=== PATIENT | male | born 2000 | race Two or more races ===

== ENCOUNTER 2018-04-15 10:57 | Inpatient (IN) | payer OTHER ==
[~2018-04-15] VITALS: Ht 188 cm; Wt 125.6 kg
[2018-04-15] MEDS ORDERED: LORazepam 2 MG/ML VIAL ONE (11:00)
[2018-04-15] MEDS ORDERED: IV NORMAL SALINE 1,000ML 1,000 ML IV ONE (11:15)
[2018-04-15] MEDS ORDERED: ONDANSETRON PF 4 MG/2 ML VIAL. IV ONE (11:15)
[2018-04-15] MEDS ORDERED: LORazepam 2 MG/ML VIAL IV ONE (11:15)
[2018-04-15 11:20] LABS: BASO # 0.1 x10^3/uL (0.0-0.2); BASO % 1 % (0-3); EOS # 0.5 x10^3/uL (0.0-0.7); EOS % 6 % (0-3); HEMOGLOBIN 17.4 g/dL (13.0-17.5); LYMPH # 2.8 x10^3/uL (1.0-4.8); LYMPH % 32 % (24-48); MEAN CORPUSCULAR HEMOGLOBIN 32 pg (25-35); MEAN CORPUSCULAR HGB CONC 36 g/dL (31-37); MEAN CORPUSCULAR VOLUME 90 fL (79-100); MONO # 0.8 x10^3/uL (0.0-1.1); MONO % 9 % (0-9); NEUT # 4.6 x10^3uL (1.8-7.7); NEUT % 52 % (31-73); PLATELET COUNT 282 x10^3/uL (140-400); RED BLOOD COUNT 5.47 x10^6/uL (4.30-5.70); RED CELL DISTRIBUTION WIDTH 12.9 % (11.5-14.5); WHITE BLOOD COUNT 8.8 x10^3/uL (4.0-11.0)
[2018-04-15 11:35] LABS: ALBUMIN 4.1 g/dL (3.4-5.0); CALCIUM 9.8 mg/dL (8.5-10.1); CREATININE 1.1 mg/dL (0.7-1.3); GFR 85.3; POTASSIUM 3.7 mmol/L (3.5-5.1); TOTAL BILIRUBIN 1.1 mg/dL (0.2-1.0); TOTAL PROTEIN 8.3 g/dL (6.4-8.2)
--- NOTE | 2018-04-15 11:40 | PHYS DOC ---
Adult General Chief Complaint Chief Complaint: SEIZURE HPI HPI 18-year-old male presents via EMS for possible seizure. 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 He remembers waking up to several people standing around him. After that, he does not remember the ambulance ride over here. EMS reports they witnessed movements of the neck, head , and bilateral upper extremities. They state there was also some gross motor flailing of the upper extremities. It did not appear to be consistent with traditional seizure, but they gave 5 of Versed. This did improve the patients symptoms. The patient denies recent illness. He denies fever or chills. He denies drug or alcohol use. He has no seizure history. He has no major medical problems. He is not taking any medications, but does take workout supplements. Review of Systems Review of Systems Constitutional: Denies fever or chills [] Eyes: Denies change in visual acuity, redness, or eye pain [] HENT: Denies nasal congestion or sore throat [] Respiratory: Denies cough or shortness of breath [] Cardiovascular: No additional information not addressed in HPI [] GI: Denies abdominal pain, nausea, vomiting, bloody stools or diarrhea [] : Denies dysuria or hematuria [] Musculoskeletal: Denies back pain or joint pain [] Integument: Denies rash or skin lesions [] Neurologic: Denies headache, focal weakness or sensory changes. Seizure [] Endocrine: Denies polyuria or polydipsia [] All other systems were reviewed and found to be within normal limits, except as documented in this note. Current Medications Current Medications Current Medications Medications (Trade) Dose Ordered Sig/Dhruv Start Time Stop Time Status Last Admin Dose Admin Lorazepam (Ativan) 2 mg 1X ONCE 04/15/18 11:15 04/15/18 11:16 DC 04/15/18 11:14 2 MG Ondansetron HCl (Zofran) 4 mg 1X ONCE 04/15/18 11:15 04/15/18 11:16 DC 04/15/18 11:15 4 MG Sodium Chloride 1,000 ml @ 1,000 mls/hr 1X ONCE 04/15/18 11:15 04/15/18 12:14 04/15/18 11:15 1,000 MLS/HR Allergies Allergies Allergies Coded Allergies Type Severity Reaction Last Updated Verified No Known Drug Allergies 04/15/18 No Physical Exam Physical Exam Constitutional: Well developed, well nourished, no acute distress, non-toxic appearance. [] HENT: Normocephalic, atraumatic, bilateral external ears normal, oropharynx moist, no oral exudates, nose normal. [] Eyes: PERRLA, EOMI, conjunctiva normal, no discharge. [] Neck: Normal range of motion, no tenderness, supple, no stridor. [] Cardiovascular:Heart rate regular rhythm, no murmur [] Lungs & Thorax: Bilateral breath sounds clear to auscultation [] Abdomen: Bowel sounds normal, soft, no tenderness, no masses, no pulsatile masses. [] Skin: Warm, dry, no erythema, no rash. [] Back: No tenderness, no CVA tenderness. [] Extremities: No tenderness, no cyanosis, no clubbing, ROM intact, no edema. [] Neurologic: Alert and oriented X 3, normal motor function, normal sensory function, no focal deficits noted. [] Psychologic: Affect normal, judgement normal, mood normal. [] Current Patient Data Lab Results Laboratory Tests Test 04/15/18 11:04 White Blood Count 8.8 x10^3/uL (4.0-11.0) Red Blood Count 5.47 x10^6/uL (4.30-5.70) Hemoglobin 17.4 g/dL (13.0-17.5) Hematocrit 49.0 % (39.0-53.0) Mean Corpuscular Volume 90 fL (79-100) Mean Corpuscular Hemoglobin 32 pg (25-35) Mean Corpuscular Hemoglobin Concent 36 g/dL (31-37) Red Cell Distribution Width 12.9 % (11.5-14.5) Platelet Count 282 x10^3/uL (140-400) Neutrophils (%) (Auto) 52 % (31-73) Lymphocytes (%) (Auto) 32 % (24-48) Monocytes (%) (Auto) 9 % (0-9) Eosinophils (%) (Auto) 6 % (0-3) H Basophils (%) (Auto) 1 % (0-3) Neutrophils # (Auto) 4.6 x10^3uL (1.8-7.7) Lymphocytes # (Auto) 2.8 x10^3/uL (1.0-4.8) Monocytes # (Auto) 0.8 x10^3/uL (0.0-1.1) Eosinophils # (Auto) 0.5 x10^3/uL (0.0-0.7) Basophils # (Auto) 0.1 x10^3/uL (0.0-0.2) EKG EKG [] Radiology/Procedures Radiology/Procedures [] Impressions: CT scan of the head without contrast 04/15/2018 Clinical History: Atypical seizure responses. Technique: Unenhanced, contiguous, 5 mm axial sections were obtained through the head. One or more of the following individualized dose reduction techniques were utilized for this study: 1. Automated exposure control. 2. Adjustment of the mA and/or kV according to patient size. 3. Use of iterative reconstruction technique. Findings: The ventricles and sulci are within normal limits in size and configuration. No focal area of abnormal attenuation is seen involving the brain parenchyma. No extra-axial fluid collection is seen. No skull fracture is seen. Impression: Negative study. Electronically signed by: Ishaan Muller MD (04/15/2018 12:08 PM) [id number] DICTATED AND SIGNED BY: ISHAAN MULLER MD DATE: 04/15/18 [id number] CC: ANTHONY BARNES DO ~ Course & Med Decision Making Course & Med Decision Making Pertinent Labs and Imaging studies reviewed. (See chart for details) In the ED, the patient had some jerking motions of his bilateral lower extremities as well as his eyes rolling back in his head. The patient was not responsive. As we prepared to give the patient Ativan, he seemed to come out of the episode. We still gave the Ativan. The patient then became more alert and was able to answer my questions. Workup is pending. The patient's labs are significant for some slightly elevated liver enzymes but are otherwise unremarkable. His urine drug screen is negative. His head CT is unremarkable. The patient had an additional episode of blank staring without muscle twitching prior to receiving his Keppra IV dose. I have given him 1 g IV. The patient had no further seizure-like episodes. I discussed the patient with Dr. Mendez, the hospitalist and Dr. Corey, the neurologist and they recommended admission to the hospital for further observation and neurology consult tomorrow. The patient is in agreement with this plan. Greater than 35 minutes of critical care time was spent on this patient exclusive of other billable procedures. [] Dragon Disclaimer Dragon Disclaimer This electronic medical record was generated, in whole or in part, using a voice recognition dictation system. Departure Departure: Impression: Primary Impression: Status epilepticus Disposition: ADMITTED INPATIENT Condition: STABLE ANTHONY BARNES DO Apr 15, 2018 11:40
[2018-04-15 11:42] LABS: BARBITURATES NEG (NEG); BENZODIAZEPINES NEG (NEG); CANNABINOIDS NEG (NEG); COCAINE NEG (NEG); METHADONE NEG (NEG); OPIATES NEG (NEG); PHENCYCLIDINE NEG (NEG)
[2018-04-15 11:47] LABS: AMPHETAMINE/METHAMPHETAMINE NEG (NEG)
[2018-04-15] MEDS ORDERED: IV NORMAL SALINE 100ML 100 ML ONE (12:08)
[2018-04-15] MEDS ORDERED: levETIRAcetam 500 MG/5 ML VIAL IV ONE (12:08)
--- NOTE | 2018-04-15 12:12 | RAD ---
CT scan of the head without contrast 04/15/2018 Clinical History: Atypical seizure responses. Technique: Unenhanced, contiguous, 5 mm axial sections were obtained through the head. One or more of the following individualized dose reduction techniques were utilized for this study: 1. Automated exposure control. 2. Adjustment of the mA and/or kV according to patient size. 3. Use of iterative reconstruction technique. Findings: The ventricles and sulci are within normal limits in size and configuration. No focal area of abnormal attenuation is seen involving the brain parenchyma. No extra-axial fluid collection is seen. No skull fracture is seen. Impression: Negative study. Electronically signed by: Ishaan Muller MD (04/15/2018 12:08 PM) [id number]
[2018-04-15 12:31] LABS: BILIRUBIN,URINE NEG (NEG); CLARITY,URINE CLEAR; COLOR,URINE AMBER; GLUCOSE,URINE NEG (NEG); NITRITE,URINE NEG (NEG); UROBILINOGEN,URINE 0.2 mg/dL (0.2 mg/dL)
[2018-04-15 12:32] LABS: BACTERIA,URINE 0 /HPF (0-FEW); RBC,URINE 0 /HPF (0-2); SQUAMOUS EPITHELIAL CELL,UR OCC /LPF; WBC,URINE 0 /HPF (0-4)
[2018-04-15] MEDS ORDERED: ONDANSETRON PF 4 MG/2 ML VIAL. IV PRN (14:15)
[2018-04-15 15:00] VITALS: BP 130/87
--- NOTE | 2018-04-15 18:02 | HP ---
ADMIT DATE: 04/15/2018 HISTORY OF PRESENT ILLNESS: The patient is a 18-year-old male patient, a student at [employer], was brought to the Emergency Room via emergency medical service personnel for possible seizures. 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 After that, he does not remember the ambulance ride over here. EMS reports that they witnessed movements of the neck, head, and bilateral upper extremities. They stated there was also some gross motor flailing the upper extremities. He did not appear to be consistent with the additional seizures. They gave him 5 mg of Versed, this did improve the patient's symptoms. The patient denied recent illness. Denied any fever or chills. Denied any drug or alcohol. He has never had any seizure before and no major medical problem. He is not taking any medication, but does take some workout supplement. The patient was extensively evaluated in the Emergency Room, has received 2 mg of lorazepam, Zofran as well as IV fluid and eventually a gram of Keppra. He has had a CT scan of the head without contrast, which showed that the ventricles and sulci are within normal limits in size and configuration. No focal area of abnormal attenuation is seen involving the brain parenchyma. No extraaxial fluid collection is seen. No skull fracture is seen. Apparently while the patient was in the Emergency Room, he has jerking motion of his bilateral lower extremities as well as his eyes rolling back in his head. He was not responsive and apparently during the preparation to give him the Ativan. He seemed to come out of the episode. He has also another episode when he has a blank staring without muscle twitching prior to receiving his Keppra. We did consult Dr. Corey, who kindly will come and see him for further evaluation and treatment. PAST MEDICAL HISTORY: Unremarkable. PAST SURGICAL HISTORY: Unremarkable. ALLERGIES: He has known drug allergies. MEDICATIONS: He is currently on no medication. FAMILY HISTORY: He has 3 brothers, all younger and healthy. Both parents are alive and healthy. SOCIAL HISTORY: He is a student at [employer]. He does not smoke, drink alcohol or use any recreational drugs. REVIEW OF SYSTEMS: Essentially unremarkable. PHYSICAL EXAMINATION GENERAL: When I saw him, he was resting slightly propped up in bed, in no apparent respiratory distress. No pallor, jaundice, cyanosis, or thyromegaly. No jugular venous distension. No limb edema. VITAL SIGNS: His heart rate was 98, blood pressure 130/87, temperature was 97.4, respiratory rate was 18 and oxygen saturation was 96%. HEAD, EYES, EARS, NOSE AND THROAT: Showed normocephalic, atraumatic. NECK: Supple. HEART: Showed normal first and second sounds. No gallop, rub or murmur. CHEST: Clear to auscultation. No crepitation or rhonchi. ABDOMEN: Distended, soft, nontender. No guarding or rigidity. No organomegaly. All hernial orifice intact. Bowel sounds normal. NEUROLOGIC: He was awake, alert, oriented to time and place and person. All cranial nerves are intact. EXTREMITIES: He moves extremities without difficulty. LABORATORY DATA: In the Emergency Room showed a white cell count of 8800, hemoglobin 17.4, hematocrit 49, MCV 90 and platelet count 202,000 with normal manual differential. Serum sodium was 140, potassium 3.7, chloride 104, bicarbonate 24, anion gap of 12, BUN 14, creatinine 1.1, estimated GFR was 85 mL per minute. His glucose was 100, calcium was 9.8. Total bilirubin is 1.1. AST is normal. ALT and alkaline phosphatase slightly elevated. Total protein was 8.3, albumin was 4.1. Urinalysis was essentially unremarkable. Toxic screen was negative. His CT scan of the head showed the ventricles and sulci are within normal limits in size and configuration. No focal area of abnormal continuation is seen involving the brain parenchyma. No extraaxial fluid collection is seen. No skull fracture is seen. ASSESSMENT AND PLAN: The patient was admitted with what seems to be atypical seizures. He did not bite his tongue. He was not incontinent of bowel or bladder. Given by description, it does not seem to have the typical tonic-clonic seizures. In any case, he has received 1000 mg of Keppra. We will continue with Keppra. We have consulted Dr. Corey and we will decide on further management and implement his recommendation. ACE MEREDITH MD DR: MELANIA/steve JOB#: [id number] / [id number]
[2018-04-15] MEDS ORDERED: ACETAMINOPHEN 325 MG TABLET PO PRN (18:15)
[2018-04-15 19:15] VITALS: BP 135/86
[2018-04-15 23:04] VITALS: BP 116/68
--- NOTE | 2018-04-16 00:49 | CONS ---
DATE OF CONSULTATION: 04/15/2018 NEUROLOGICAL CONSULTATION REFERRING PHYSICIAN: Sada Mendez MD REASON FOR CONSULTATION: Rule out seizure. 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 According to his coaches, the patient was lying in the room after training, but he became unresponsive for a few minutes, several trials to wake him up, he could not respond, then EMS was activated. On the scene, the patient was all of a sudden very violent and required 4 to 5 people to calm him down. Then, he was given Versed. On arrival to the Emergency Room, the patient was awake and he denies any history of seizure or any recent illnesses. According to his coaches, the patient demonstrated 3-4 episodes lasted a few minutes, described as a sudden onset of behavior changes. The eyes were rolling up in the head and had mental status changes. They also mentioned recent episodes of severe anger at his coaches, which he has never done this before. Currently, the patient is very tired and slowly responsive after giving him Ativan in the Emergency Room and loaded him with 1 g of Keppra intravenously. He has not had any recurrent episode since he has been on the floor. However, the patient did not recall the first episode, which described as violent movements of all his entire body, but not necessarily the tonic-clonic rhythmic seizure activities. The patient denies tongue biting, urinary or bladder incontinence. He denies any recent head injuries or fall. He denies taking any illegal drugs or any other medications. PAST MEDICAL HISTORY: As described above, otherwise, unremarkable. SOCIAL HISTORY: The patient is single. He is a resident at [employer]. He denies smoking, alcohol drinking, or illicit drug use. CURRENT HOME MEDICATIONS: None. ALLERGIES: No known drug allergies. REVIEW OF SYSTEMS: A 10-point review of system was performed as mentioned above in history of present illness. PHYSICAL EXAMINATION: GENERAL: Obese male, not in acute distress. He weighs 277 pounds. VITAL SIGNS: Blood pressure 130/87, respiratory rate 18, pulse is 98 regular, temperature 97.4, oxygen saturation is 96% on room air. HEENT: Normocephalic, atraumatic, otherwise, unremarkable. NECK: Supple. Negative for carotid bruit, lymphadenopathy or thyromegaly. LUNGS: Clear to A and P. CARDIOVASCULAR: Regular rate and rhythm. Normal S1, S2. There is no S3, S4, or murmur. ABDOMEN: Soft. Bowel sounds positive. EXTREMITIES: Negative for cyanosis, clubbing or pitting edema. NEUROLOGIC: Mental status: The patient is alert and oriented x 3. The speech is slow. There is no language dysfunction. Memory, judgment, and abstract thinking are fair. The patient denies hallucination or delusion. CRANIAL NERVES: Visual posada are full. The pupils are reactive to light and accommodation. The extraocular movements are intact. There is no nystagmus. There is no facial motor or sensory deficit. Hearing is intact bilaterally. The palate is elevated symmetrically. Sternocleidomastoid muscles are powerful bilaterally. The patient shrugs his shoulders symmetrically, protrudes his tongue in the midline without fasciculation or atrophy. MOTOR: No focal muscle bulk was seen. The tone is normal. The strength is 5/5 throughout. Sensory examination revealed normal pinprick, light touch, vibratory and position senses. Deep tendon reflexes were symmetric and hypoactive without pathologic responses. Gait not tested as the patient is very tired. LABORATORY DATA: CBC revealed white blood cells of 8800, hemoglobin 17.4, hematocrit 49, platelet count of 282,000. Chemistry revealed sodium 140, potassium 3.7, chloride 104, CO2 of 24, BUN 14, creatinine 1.1, glucose 100, calcium 9.8. Total bilirubin 1.1. AST is normal, ALT is high at 70, alkaline phosphatase is high at 125 and protein is high at 8.3. Urinalysis is negative and urine drug screen is negative as well. IMPRESSION: Seizure-like activities, etiology uncertain, rule out epileptic versus non-epileptic seizure. RECOMMENDATION: 1. The patient has been loaded with Keppra in the Emergency Room and he will be on maintenance dose 500 mg twice a day. 2. The patient needs EEG as soon as possible. M Lawrence KINCAID MD DR: MISSAEL/steve JOB#: [id number] / [id number]
[2018-04-16 06:09] VITALS: BP 121/79
[2018-04-16 06:28] LABS: HEMATOCRIT 47.2 % (39.0-53.0); HEMOGLOBIN 16.5 g/dL (13.0-17.5); RED BLOOD COUNT 5.18 x10^6/uL (4.30-5.70); RED CELL DISTRIBUTION WIDTH 12.6 % (11.5-14.5); WHITE BLOOD COUNT 8.2 x10^3/uL (4.0-11.0)
[2018-04-16 06:37] LABS: ALBUMIN 3.6 g/dL (3.4-5.0); CALCIUM 8.8 mg/dL (8.5-10.1); CREATININE 0.9 mg/dL (0.7-1.3); GFR 107.6; POTASSIUM 3.5 mmol/L (3.5-5.1); TOTAL BILIRUBIN 1.1 mg/dL (0.2-1.0); TOTAL PROTEIN 7.3 g/dL (6.4-8.2)
[2018-04-16 10:26] VITALS: BP 152/85
--- NOTE | 2018-04-16 11:49 | DS ---
DATE OF DISCHARGE: HISTORY OF PRESENT ILLNESS: The patient is a 18-year-old male patient who was brought to the Emergency Room after he presented with possible new onset of seizures. Apparently, the patient was working and lifting weights and according to his course, the patient was lying in the room after training, but he became unresponsive for a few minutes. Several trials to wake him up, he could not respond and therefore, the EMS was activated. On the scene, the patient was all of a sudden very violent and required 4 to 5 people to calm him down. He was given Versed. On arrival to the Emergency Room, the patient was awakened. He denied any history of seizures or any recent illness. According to his course, the patient demonstrated 4 episodes that lasted for a few minutes, described it as a sudden onset of behavioral changes. The eyes were rolling up in the head and had mental status change. They also mentioned recent episodes of severe anger at his coaches, which he has never done this before. He was evaluated in the Emergency Room. His lab work was unremarkable. In fact his sodium was normal, potassium and kidney function were all within normal range. He has had a CT scan of the head, which was unremarkable and showed that the ventricles and sulci are within normal limits in size and configuration. No focal area of abnormal continuation is seen involving the brain parenchyma. No extra-axial fluid collection is seen, no skull fracture is seen. He was given loading dose of Keppra and was continued on 500 mg IV twice a day. He was seen by Dr. Corey and who planned to do an outpatient EEG. Unfortunately, he is fully booked until 06/01/2017 and therefore, a decision was made to transfer him to [facility] to consult Neurology to do MRI and do an EEG before he can be accepted back to the [facility]. PHYSICAL EXAMINATION: GENERAL: When I saw him today, he looked well and was clearly in no apparent respiratory distress. No pallor, jaundice, cyanosis, or thyromegaly. No jugular venous distension. No limb edema. VITAL SIGNS: His heart rate was 84, blood pressure 152/85, temperature was 98.1, respiratory rate 20, and oxygen saturation was 98%. HEAD, EYES, EARS, NOSE AND THROAT: Showed normocephalic, atraumatic. NECK: Supple. HEART: Showed normal first and second heart sounds. No gallop or murmur. CHEST: Clear to auscultation. No crepitation or rhonchi. ABDOMEN: Distended, soft, nontender. No guarding or rigidity. No organomegaly. Hernial orifice intact. Bowel sounds normal. NEUROLOGIC: He was awake, alert, responding appropriately. All cranial nerves intact. EXTREMITIES: He moves extremities without difficulty, ambulates without assistance or assistive devices. LABORATORY DATA: His lab work this morning showed a serum sodium 130, potassium 3.5, chloride 100, bicarbonate 28, anion gap of 2, BUN 10, creatinine 0.9. Estimated GFR was 107 mL per minute. His glucose was 98, calcium was 8.8. Total bilirubin, AST, ALT, alkaline phosphatase were normal. His total protein was 7.3, albumin 3.6. Urinalysis was unremarkable. Toxic screen was negative. ASSESSMENT: New onset of possible seizures and has also hyponatremia and slightly impaired liver enzymes. The patient will be transferred to [facility] to consult the neurologist arrange for an MRI and also an EEG. ACE MEREDITH MD DR: MELANIA/steve JOB#: [id number] / [id number]
--- NOTE | 2018-04-16 23:27 | PN ---
DATE: SUBJECTIVE: The patient denies any new medical or neurological complaints; however, he is still feeling "oozing when he stands up and walks.'' He denies any fall or recurrent seizure-like activities. OBJECTIVE: GENERAL: Well-developed, well-nourished male, not in acute distress. VITAL SIGNS: Blood pressure 121/79, respiratory rate 18, pulse is 73, temperature 98.6, oxygen saturation 99% on room air. HEENT: Normocephalic, atraumatic, otherwise unremarkable. NECK: Supple. Negative for carotid bruit, lymphadenopathy or thyromegaly. LUNGS: Clear to A and P. CARDIOVASCULAR: Regular rhythm, normal S1, S2. There is no S3, S4, or murmur. ABDOMEN: Soft. Bowel sounds positive. EXTREMITIES: Negative for cyanosis, clubbing or pitting edema. NEUROLOGIC: Mental status: The patient is alert and oriented x 3. The speech is fluent. There is no language dysfunction. Memory, judgment, and abstract thinking are normal. The patient denies hallucination or delusion. Cranial nerves are intact. Motor examination: No focal muscle bulk was seen. The tone was normal. The strength is 5/5 throughout. Sensory examination revealed normal pinprick, light touch, vibratory and position senses. Deep tendon reflexes were symmetric and active without pathology responses. Gait: The stance is steady; however, the tandem gait is difficult. LABORATORY DATA: CBC revealed white blood cells of 8.2, hemoglobin is 16.5, hematocrit 47.2, platelet count 231,000. Chemistry revealed sodium of 130, potassium 3.5, chloride 100, CO2 of 28, BUN 10, creatinine 0.9, glucose 98, calcium 8.8, ____ 1.1, otherwise liver enzymes are normal. IMPRESSION: Epilepsy versus nonepileptic seizure. RECOMMENDATIONS: 1. We will continue with current management with Keppra 500 mg twice a day. 2. Await for EEG. If it was decided to discharge the patient today, we will arrange for EEG to be done on outpatient in my office. The patient is aware of the driving and seizure ____. He should not drive or climb ladders or swimming alone without observation. M Lawrence KINCAID MD DR: MISSAEL/steve JOB#: [id number] / [id number]
== END 2018-04-16 12:36 | disposition short-term general hospital (02) | DRG 101 ==
LOC: ER 10:57 → 1 SOUTH 13:45
PROVIDERS: ADMIT Internal Medicine; ATTEND Internal Medicine
DX: G40.901 Epilepsy, unspecified, not intractable, with status epilepticus (principal); E87.1 Hypo-osmolality and hyponatremia
CPT/HCPCS: 36415; 70450; 80053; 80307; 81001; 82550; 82947; 85025; 85027; 96361; 96365; 96375; J1953; J2060; J2405; 99291-25; J7030

== ENCOUNTER 2019-10-22 14:58 | Emergency (ER) | payer OTHER ==
[~2019-10-22] VITALS: Ht 188 cm; Wt 120.2 kg
[2019-10-22 15:30] LABS: BASO # 0.1 x10^3/uL (0.0-0.2); BASO % 1 % (0-3); EOS # 0.1 x10^3/uL (0.0-0.7); EOS % 1 % (0-3); HEMOGLOBIN 16.3 g/dL (13.0-17.5); LYMPH # 1.4 x10^3/uL (1.0-4.8); LYMPH % 9 % (24-48); MEAN CORPUSCULAR HEMOGLOBIN 31 pg (25-35); MEAN CORPUSCULAR HGB CONC 35 g/dL (31-37); MEAN CORPUSCULAR VOLUME 90 fL (79-100); MONO # 1.2 x10^3/uL (0.0-1.1); MONO % 8 % (0-9); NEUT # 12.8 x10^3uL (1.8-7.7); NEUT % 83 % (31-73); PLATELET COUNT 263 x10^3/uL (140-400); RED BLOOD COUNT 5.24 x10^6/uL (4.30-5.70); RED CELL DISTRIBUTION WIDTH 13.1 % (11.5-14.5); WHITE BLOOD COUNT 15.5 x10^3/uL (4.0-11.0)
[2019-10-22 15:49] LABS: CALCIUM 9.1 mg/dL (8.5-10.1); CREATININE 1.1 mg/dL (0.7-1.3); GFR 84.5; POTASSIUM 3.2 mmol/L (3.5-5.1)
--- NOTE | 2019-10-22 16:12 | RAD ---
CT HEAD WO CONTRAST History:Seizure Comparison: 04/15/2018 Technique: Noncontrast CT imaging was performed of the head. Exposure: One or more of the following individualized dose reduction techniques were utilized for this examination: 1. Automated exposure control 2. Adjustment of the mA and/or kV according to patient size 3. Use of iterative reconstruction technique. Findings: No acute extra-axial or parenchymal hemorrhage is identified. There is no significant intra-axial mass effect, midline shift, or extra-axial fluid collection. The watson-white differentiation of the major vascular territories is preserved. The ventricles, sulci, and cisterns are within normal limits in size and configuration. The mastoid air cells and the visualized paranasal sinuses are aerated. No acute calvarial abnormality is identified. Impression: 1. No acute intracranial abnormality is identified. Electronically signed by: Adalid Cheung MD (10/22/2019 4:09 PM) [id number]
--- NOTE | 2019-10-22 16:14 | RAD ---
LUMBAR SPINE 2-3V History: Back pain, post seizure Comparison: None. Findings: 3 views of the lumbar spine are submitted. Lumbar vertebral body stature is mostly maintained, very minimal anterior wedge deformity of T12 and L1. AP alignment is within normal limits. Impression: 1. There is very mild anterior wedge deformity of T12 and L1 although may be developmental unless there is focal point tenderness at these levels. There are no previous exams to evaluate for change. Electronically signed by: Adalid Cheung MD (10/22/2019 4:11 PM) [id number]
[2019-10-22] MEDS ORDERED: IOHEXOL 300 MG/ML 75 ML VIAL. IV ONE (16:15)
--- NOTE | 2019-10-22 16:53 | RAD ---
INDICATION: Reason: lower back infection, 75mls omni 300 iv contrast / Spl. Instructions: / History: COMPARISON: None. TECHNIQUE: Axial CT images obtained through the pelvis with contrast. One or more of the following individualized dose reduction techniques were utilized for this examination: 1. Automated exposure control; 2. Adjustment of the mA and/or kV according to patient size; 3. Use of iterative reconstruction technique. FINDINGS: Partial visualization of a low-density lesion of the left kidney measuring up to 33 mm which does not appear cystic. Urinary bladder is partially distended. Partially visualized liver appears low density which can be seen with fatty infiltration. No periappendiceal inflammatory changes. Enlarged lymph nodes in the bilateral groin measuring up to 15 mm short axis. Could be reactive in nature There are scattered prominent lymph nodes within the pelvis as well. Extending from the gluteal crease through the L5-S1 level there is edema in the fat as well as multiloculated enhancing walled collection identified. This collection extends for approximately 13 cm craniocaudal with axial diameter of approximately 76 x 31 mm with adjacent edema. This does not extend to the perirectal or perianal region. There is degenerative changes of the spine with disc protrusions. IMPRESSION: * Subcutaneous fluid collection is identified posterior to the sacrum which could be secondary to abscess formation with surrounding cellulitis. * Left renal lesion which does not measure as a simple cyst. Would most commonly be benign in nature in a patient of this age however a nonemergent ultrasound may be helpful to further evaluate and ensure that there is not a solid component. Electronically signed by: Elijah Siu MD (10/22/2019 4:50 PM) [id number]
[2019-10-22] MEDS ORDERED: LIDOCAINE/EPI/TETRACAINE TOPICAL GEL 3 ML. TP ONE (17:15)
[2019-10-22 17:21] LABS: % ATYL 3 % (0-0); % BANDS 3 % (0-9); % BASOS 1 % (0-3); % LYMPHS 9 % (24-48); % MONOS 5 % (0-10); % SEGS 79 % (35-66)
[2019-10-22 17:22] LABS: PLT ESTIMATE ADEQUATE (ADEQUATE)
[2019-10-22] MEDS ORDERED: LEVE500T56 PO (18:03)
[2019-10-22] MEDS ORDERED: CLIN300C8 PO (18:03)
--- NOTE | 2019-10-22 18:03 | PHYS DOC ---
Past History Past Medical History: Seizure (KAYLA IRVING MD) Past Surgical History: No Surgical History (KAYLA IRVING MD) Alcohol Use: Occasionally Drug Use: None (KAYLA IRVING MD) RISKS/ALTERNATIVES Risks/Alternatives Risks and alternatives of this type of sedation and procedure discussed with: RISK/ALTERNATIVES DISCUSSED: Patient (KAYLA IRVING MD) H & P ON CHART H & P H & P on chart and reviewed for co-morbid conditions and appropriate labs. H&P ON CHART: Yes (KAYLA IRVING MD) STATUS PREG STATUS ASSESSED: Yes (KAYLA IRVING MD) MEDS/ALLERGIES REVIEWED Meds/Allergies Reviewed Medications and Allergies including time and route of recently administered narcotics and sedatives. MEDS/ALLERGIES REVIEWED: Yes (KAYLA IRVING MD) ASA RATING ASA RATING: I (KAYLA IRVING MD) AIRWAY ASSESSMENT Airway Assessment Airway patency, oral function limitations, presence of caps, crowns, dentures, partials, and ability to extend neck assessed. AIRWAY ASSESSMENT: Yes (KAYLA IRVING MD) MALLAMPATI SCORE MALLAMPATI SCORE: II (KAYLA IRVING MD) PRE-SEDATION ASSESSMENT PRE-SEDATION PHYSICAL: Yes (KAYLA IRVING MD) Adult General Chief Complaint Chief Complaint: SEIZURE HPI HPI Patient is a 19 year old male who presents with seizure. History is very limited as patient is postictal. What I can get is that he is only had one other seizure in his lifetime and that was 1 year ago. He is not on any medications. He is never seen a neurologist. According to EMS he was on the phone with his mother and she heard him dropped the phone. She called his etiquette coach who found him seizing on the ground. Patient's only complaint is of back pain. I cannot get any history from him about this back pain. (KAYLA IRVING MD) Review of Systems Review of Systems Unable to obtain due to postictal state (KAYLA IRVING MD) Current Medications Current Medications Current Medications Medications (Trade) Dose Ordered Sig/Dhruv Start Time Stop Time Status Last Admin Dose Admin Iohexol (Omnipaque 300 Mg/ml) 75 ml 1X ONCE 10/22/19 16:15 10/22/19 16:16 DC 10/22/19 16:21 75 ML Lidocaine/ Epinephrine (Let (Wvhz-Hakjjeg-Hcweq) Gel) 8 ml 1X ONCE 10/22/19 17:15 10/22/19 17:16 DC 10/22/19 17:31 8 ML (KAYLA IRVING MD) Allergies Allergies Allergies Coded Allergies Type Severity Reaction Last Updated Verified No Known Drug Allergies 04/15/18 No (KAYLA IRVING MD) Physical Exam Physical Exam General: Lethargic, arouses to painful stimuli. Well Nourished, well hydrated. Cooperative HEENT: Atraumatic, EOMI, PERRL, airway patent, moist oral mucosa Neck: Supple, trachea midline Respiratory: CTA bilaterally, normal effort, no wheezing/crackles CV: RRR, no murmur, cap refill <2 GI: Soft, nondistended, nontender, no masses MSK: No obvious deformities Skin: Warm, dry. 10x7cm area of erythema with two raised cyst like structures, induration, fluctuance Neuro: moves all extremities equally, reacts to pain in all extremities (KAYLA IRVING MD) Current Patient Data Vital Signs Vital Signs Date Time Temp Pulse Resp B/P (MAP) Pulse Ox O2 Delivery O2 Flow Rate FiO2 10/22/19 15:07 98.3 103 14 116/66 (83) 98 Room Air Lab Results Laboratory Tests Test 10/22/19 15:04 10/22/19 15:14 Glucose (Fingerstick) 114 mg/dL (70-99) H White Blood Count 15.5 x10^3/uL (4.0-11.0) H Red Blood Count 5.24 x10^6/uL (4.30-5.70) Hemoglobin 16.3 g/dL (13.0-17.5) Hematocrit 47.0 % (39.0-53.0) Mean Corpuscular Volume 90 fL (79-100) Mean Corpuscular Hemoglobin 31 pg (25-35) Mean Corpuscular Hemoglobin Concent 35 g/dL (31-37) Red Cell Distribution Width 13.1 % (11.5-14.5) Platelet Count 263 x10^3/uL (140-400) Neutrophils (%) (Auto) 83 % (31-73) H Lymphocytes (%) (Auto) 9 % (24-48) L Monocytes (%) (Auto) 8 % (0-9) Eosinophils (%) (Auto) 1 % (0-3) Basophils (%) (Auto) 1 % (0-3) Neutrophils # (Auto) 12.8 x10^3uL (1.8-7.7) H Lymphocytes # (Auto) 1.4 x10^3/uL (1.0-4.8) Monocytes # (Auto) 1.2 x10^3/uL (0.0-1.1) H Eosinophils # (Auto) 0.1 x10^3/uL (0.0-0.7) Basophils # (Auto) 0.1 x10^3/uL (0.0-0.2) Segmented Neutrophils % 79 % (35-66) H Band Neutrophils % 3 % (0-9) Lymphocytes % 9 % (24-48) L Atypical Lymphocytes % (Manual) 3 % (0-0) H Monocytes % 5 % (0-10) Basophils % 1 % (0-3) Platelet Estimate Adequate (ADEQUATE) Sodium Level 140 mmol/L (136-145) Potassium Level 3.2 mmol/L (3.5-5.1) L Chloride Level 103 mmol/L (98-107) Carbon Dioxide Level 26 mmol/L (21-32) Anion Gap 11 (6-14) Blood Urea Nitrogen 8 mg/dL (8-26) Creatinine 1.1 mg/dL (0.7-1.3) Estimated GFR (Cockcroft-Gault) 84.5 Glucose Level 111 mg/dL (70-99) H Calcium Level 9.1 mg/dL (8.5-10.1) (KAYLA IRVING MD) EKG EKG [] (KAYLA IRVING MD) Radiology/Procedures Radiology/Procedures [] (KAYLA IRVING MD) Course & Med Decision Making Course & Med Decision Making Pertinent Labs and Imaging studies reviewed. (See chart for details) Patient is a 19 year old male who presents to the Emergency Room complaining of seizure. Patient is post ictal upon my evaluation. He has only ever had one other seizure and reportedly was admitted for several days at this time due to prolonged post ictal state. Unclear what was found. Patient is not on medication. Patient was observed in the ED until he returned to baseline. CT head and work up negative other than elevated WBC. Upon exam, I found patient has a large abscess with cellulitis on his back. Patient had significant pain and required sedation for I&D. Large amount of blood and pus was expressed for multiple pockets. Will place him on Clindamycin for this. I have discussed with him he needs to follow up with surgery to ensure this completely resolves. Abscess does not appear to be related to patient's seizure. He has not been having fevers or feeling bad other than having pain. Patient is not septic at this time. Will also place him on Keppra and have him follow up with Neurology as this is his second seizure. We discussed driving restrictions. Patient was discussed w/ Dr Lai who will re-evaluate him after he has returned to baseline from sedation. (KAYLA IRVING MD) Course & Med Decision Making Comprehensive signout obtained from off going daytime physician Agree with decision to discharge home with close neurology follow-up and Keppra use Patient seen and evaluated after conscious sedation for abscess drainage. Well- appearing, fully resolved after conscious sedation, has a ride home in good support in outpatient setting from peers to evaluate him and monitor over the next 24 to 48 hours Agree with decision to discharge with antibiotic use and outpatient surgery Strict return precautions discussed at length with good understanding by patient, all questions and concerns addressed prior to ER departure (MARY LAI DO) Dragon Disclaimer Dragon Disclaimer This electronic medical record was generated, in whole or in part, using a voice recognition dictation system. (KAYLA IRVING MD) Departure Departure: Impression: Primary Impression: Seizure Additional Impression: Abscess of back Disposition: 01 HOME/RESIDENCE PRIOR TO ADM Condition: STABLE Referrals: PCP,NO (PCP) SANDRA RENTERIA MD General surgery DAYO KINCAID MD Neurology Patient Instructions: Abscess, Care After, Seizure, Adult Additional Instructions: As discussed prior to ER departure, please discuss need to see general surgery, Dr. Renteria, in outpatient setting for follow-up for your back abscess Scripts Levetiracetam (KEPPRA) 500 Mg Tablet 1 TAB PO BID for seizures for 30 Days, #60 TAB 0 Refills Prov: KAYLA IRVING MD 10/22/19 Clindamycin Hcl (CLINDAMYCIN HCL) 300 Mg Capsule 1 CAP PO TID for infx, #21 CAP Prov: KAYLA IRVING MD 10/22/19 Justification of Admission: Justification of Admission: Justification of Admission Dx: Yes (KAYLA IRVING MD) Justification of Admission Dx: N/A (MARY LAI DO) Incision and Drainage Progress Incision/Drainage Performed by: Kayla Irving Consent: Verbal consent obtained. Risks and benefits: risks, benefits and alternatives were discussed Consent given by: patient and guardian Patient understanding: patient states understanding of the procedure being performed Patient consent: the patient's understanding of the procedure matches consent given Patient identity confirmed: arm band Time out: Immediately prior to procedure a "time out" was called to verify the correct patient, procedure, equipment, support team member and site/side marked as required. Type: abscess Location details: Lower back Anesthesia: Propofol Patient sedated: Yes Scalpel size: 11 Incision type: three 3cm incisions in areas of fluctuance Complexity: complicated Drainage: Bloody, purulent Drainage amount: Large Patient tolerance: Patient tolerated the procedure well with no immediate complications. (KAYLA IRVING MD) Problem Qualifiers KAYLA IRVING MD Oct 22, 2019 18:03 MARY LAI DO Oct 22, 2019 19:26
[2019-10-22] MEDS ORDERED: PROPOFOL 20 ML IV ONE (18:30)
[2019-10-22 18:45] LABS: BACTERIA,URINE 0 /HPF (0-FEW); BILIRUBIN,URINE NEG (NEG); CLARITY,URINE CLEAR; COLOR,URINE AMBER; GLUCOSE,URINE NEG (NEG); NITRITE,URINE NEG (NEG); RBC,URINE OCC /HPF (0-2); SQUAMOUS EPITHELIAL CELL,UR FEW /LPF; UROBILINOGEN,URINE >=8.0 mg/dL (0.2 mg/dL)
[2019-10-22 19:14] VITALS: BP 142/76
== END 2019-10-22 19:35 | disposition home or self-care (01) ==
LOC: ER 14:58
DX: L02.212 Cutaneous abscess of back [any part, except buttock and flank] (principal); R56.9 Unspecified convulsions
CPT/HCPCS: 10060; 36415; 70450; 72100; 72193; 80048; 81001; 82947; 85007; 85025; 99152; 99285; J2704; Q9967